=== PATIENT | male | born 1940 | race Caucasian/White ===

== ENCOUNTER 2024-03-31 10:28 | Emergency (ER) | payer MEDICARE, OTHER, SELFPAY ==
[2024-03-31 10:39] VITALS: BP 170/95
--- NOTE | 2024-03-31 10:46 | ED.GENMED ---
ED Provider Triage
<Yang Don PA-C - Last Filed: 04/01/24 08:12>
-
Patient seen by provider in Triage?: Seen in Triage
Attestation: A medical screening examination has been initiated by a qualified medical provider. Based on the assessment performed at this time, it has been determined that an emergent medical condition may exist and the patient has been informed
that further medical evaluation and possible additional diagnostic testing may be needed.
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 On arrival EMS took an EKG and noticed
frequent PVCs. Patient notes that he did eat prior to officiating the game and at time of triage notes he is completely asymptomatic. Labs ordered. EKG done in triage is noted for normal sinus rhythm with frequent PVCs as well.
GENERAL: Alert , in no apparent distress
EYE: No visual abnormalities.
NECK: Trachea midline
ENT: No visible abnormalities.
LUNGS: No acute respiratory distress
NEUROLOGICAL: Alert and oriented
SKIN: Skin intact. No visible changes.
MUSCULOSKELETAL: Moving extremities normally
PSYCH: Normal and appropriate interaction.
This is a medical evaluation conducted in person to initiate diagnostic evaluation and provide initial therapeutics. Please see further documentation by the treating clinician.
History of Present Illness
<Yang Don PA-C - Last Filed: 04/01/24 08:12>
General
Chief Complaint: Dizziness
Time Seen by Provider: 03/31/24 13:29
<ROSY Fernandez - Last Filed: 04/02/24 15:44>
General
Source: patient
Exam Limitations: none
Nursing documentation reviewed up to this point in time: agreed with
History of Present Illness
History of Present Illness:
Patient is an 9-year-old male who presents to the ER for lightheadedness. 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 He did have a bowl of cereal prior to his first game however during the second game he started
feel lightheaded dizzy/. He had no palpitations or chest pain no shortness of breath. He sat down and started to feel little better and he was recommended to come to the ER. He had no associated vertigo, balance issues. He denies any associate
headache. He admits to not drinking enough water throughout both games. He does have a history of PVCs however usually does not have any symptoms. He denies any recent illness fever chills. He is asymptomatic presently feels well enough to go
home.
Review of Systems
<ROSY Fernandez - Last Filed: 04/02/24 15:44>
Review of Systems
Allergies reviewed?: Yes
All Other Systems: ROS reviewed and negative except as documented in HPI and ROS
Constitutional: Reports no symptoms; Denies fever, fatigue or chills
Respiratory: Reports no symptoms; Denies trouble breathing
Cardiac: Reports other ([place] lightheaded prior to arrival)
ABD/GI: Reports no symptoms; Denies abdominal pain or vomiting
Musculoskeletal: Reports no symptoms
Skin: Reports no symptoms
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
Psychiatric: Reports no symptoms
Phy Exam
<ROSY Fernandez - Last Filed: 04/02/24 15:44>
General Physical Exam
General Presentation: no apparent distress
General age: appears stated age
General Skin: warm and dry
General Habitus: normal
General Mental: alert
General Hydration: appears well hydrated
Eye Exam
Eye Exam: PERRL and EOMI
Eye Exam General: PERRL: bilateral and EOM intact: bilateral
Pupil Exam: Bilateral: round and reactive
Cardiovascular Exam
Cardiovascular Exam: regular rate/rhythm, no murmur and normal peripheral pulses
Pulmonary Exam
Pulmonary Exam: lungs clear and no respiratory distress
Neurological Exam
Neurological Exam: alert and oriented x3
[place] Coma Scale
Eye Opening: Spontaneous
Verbal Response: Oriented
Motor Response: Obeys Commands
GCS Total Score: 15
Musculoskeletal Exam
Musculoskeletal Exam: full ROM
Skin Exam
Skin Exam: normal color and warm/dry
Psychiatric Exam
Psychiatric Exam: normal mood/affect
Course
<Yang Don PA-C - Last Filed: 04/01/24 08:12>
Orders/Labs/Results
Orders:
Orders
03/31/24 10:31
EKG [Electrocardiogram (*1)] Urgent
Reason for Study: Chest Pain
EKG- Treatment ONCE
03/31/24 10:51
Complete Blood Count/With Diff Urgent
Comprehensive Metabolic Panel Urgent
Troponin I Urgent
Abnormal Lab Results
03/31/24
10:51
MCHC 32.9 L g/dL
(33.0-37.0)
MPV 10.5 H fL
(7.4-10.4)
Absolute Neuts (auto) 6.6 H 10^3/uL
(1.4-6.5)
Absolute Lymphs (auto) 0.8 L 10^3/uL
(1.2-3.4)
Absolute Monos (auto) 0.8 H 10^3/uL
(0.1-0.6)
Neutrophils % 77.1 H %
(42.2-75.2)
Lymphocytes % 9.2 L %
(20.5-51.1)
Glucose 104 H mg/dl
(70-99)
03/31/24 10:51
03/31/24 10:51
Vital Signs
Initial and Last Documented VS:
Initial Vital Signs
Temp Pulse Resp BP Pulse Ox
98.9 F 86 22 170/95 97
03/31/24 10:39 03/31/24 10:39 03/31/24 10:39 03/31/24 10:39 03/31/24 10:39
Last Documented Vital Signs
Temp Pulse Resp BP Pulse Ox
98.9 F 71 18 137/70 98
03/31/24 10:39 03/31/24 13:09 03/31/24 13:09 03/31/24 13:09 03/31/24 13:09
<ROSY Fernandez - Last Filed: 04/02/24 15:44>
Orders/Labs/Results
Orders:
Orders
03/31/24 10:31
EKG [Electrocardiogram (*1)] Urgent
Reason for Study: Chest Pain
EKG- Treatment ONCE
03/31/24 10:51
Complete Blood Count/With Diff Urgent
Comprehensive Metabolic Panel Urgent
Troponin I Urgent
Abnormal Lab Results
03/31/24
10:51
MCHC 32.9 L g/dL
(33.0-37.0)
MPV 10.5 H fL
(7.4-10.4)
Absolute Neuts (auto) 6.6 H 10^3/uL
(1.4-6.5)
Absolute Lymphs (auto) 0.8 L 10^3/uL
(1.2-3.4)
Absolute Monos (auto) 0.8 H 10^3/uL
(0.1-0.6)
Neutrophils % 77.1 H %
(42.2-75.2)
Lymphocytes % 9.2 L %
(20.5-51.1)
Glucose 104 H mg/dl
(70-99)
03/31/24 10:51
03/31/24 10:51
Vital Signs
Initial and Last Documented VS:
Initial Vital Signs
Temp Pulse Resp BP Pulse Ox
98.9 F 86 22 170/95 97
03/31/24 10:39 03/31/24 10:39 03/31/24 10:39 03/31/24 10:39 03/31/24 10:39
Last Documented Vital Signs
Temp Pulse Resp BP Pulse Ox
98.9 F 71 18 137/70 98
03/31/24 10:39 03/31/24 13:09 03/31/24 13:09 03/31/24 13:09 03/31/24 13:09
Spice Grinder consulted with Physician
Spice Grinder consulted with physician?: Yes
Name of Physician Consulted: Dr Zhang
<ROSY Fernandez - Last Filed: 04/02/24 15:44>
MDM/Problems Addressed
Differential Diagnosis Includes:
Not limited to dehydration overexertion, arrhythmia
MDM/Problems Addressed:
As documented patient is an 9-year-old male who was referring to [employer] back to back and felt lightheaded during a second game. He admits to not drinking enough water. He had no associated chest pain headache balance issues shortness of
breath. He did not feel like he was going to pass out. He presented during my exam asymptomatic and felt much better. He does have a history PVCs and does have PVCs on the monitor. He denies any recent fever chills he is mildly hypertensive but
did not take his blood pressure medicine today. He is afebrile nonhypoxic nontachypneic with a normal white count stable hemoglobin of 14.1.chemistries chemistries and troponin are unremarkable. EKG does show sinus rhythm with frequent PVCs.
Though he is having PVCs now he is asymptomatic. There is likely this was from over exertion with refereeing 2 games [id number] and not enough water. I did review with patient however with his frequency of PVCs it is importantly follow-up with
his manager transplant for further reevaluation of a Holter monitor. He is mildly hypertensive but did not take his medicine today. Will have patient take his medicines at home. He did eat and drink here and remains well-appearing with no complaints of
symptoms throughout his ER stay. Case discussed with Dr. Rush.
Chronic conditions affecting care:
PVCs, hypertension
<ROSY Fernandez - Last Filed: 04/02/24 15:44>
*Critical Care Note
Total Time (30-74mins, 75-104mins- exclusive of procedures): Not Applicable
ED Attending Note
<Yang Don PA-C - Last Filed: 04/01/24 08:12>
-
Portions of this chart may have been created with voice recognition software.� Occasional wrong word or��sound alike� substitutions may have occurred due to the inherent limitations of voice recognition software.
Discharge Plan
Departure
Patient Disposition: Home (Routine Discharge)
Date of Disposition: 03/31/24
Time of Disposition: 15:10
Patient with high blood pressure during this ER visit?: Yes
Condition: Fair
Covid-19: Not Applicable
Discharge Problem:
Lightheadedness, PVC (premature ventricular contraction)
Instructions: Ventricular premature beats, Dizziness in adults - ED discharge instructions, BLOOD PRESSURE
Referrals:
Darnell Medellin MD [Active] -
Darien Morin DO [Family Provider] -
Activity Restrictions/Additional Instructions:
As discussed you had PVCs on your EKG and rfid strategist here in the ER.
In addition symptoms are likely from not drinking enough water while being very active.
Stay well-hydrated and rest today. Please call cardiology Tuesday to make an appointment as soon as possible for reevaluation. Return if any worsening of symptoms
Interventions
Interventions:
*Risk Screen - Suicide Last Done: 03/31/24 10:44
*Neglect/Abuse Screening Last Done: 03/31/24 10:44
*Nursing Disposition Last Done: 03/31/24 15:22
ED- Neurological Assessment Last Done: 03/31/24 13:38
ED- Cardiac Assessment Last Done: 03/31/24 13:38
Discharge Date and Time
Discharge Date/Time: 03/31/24 15:38
Print Language: WOLOF
[2024-03-31 11:19] LABS: % Basophils 0.6 % (0-2); % Eosinophils 3.3 % (0-6); % Immature Granulocytes 0.5 % (0-0.5); % Lymphocytes 9.2 % (20.5-51.1); % Monocytes 9.3 % (1.7-9.3); % Neutrophils 77.1 % (42.2-75.2); Absolute Basophils 0.1 10^3/uL (0-0.2); Absolute Eosinophils 0.3 10^3/uL (0-0.7); Absolute Lymphocytes 0.8 10^3/uL (1.2-3.4); Absolute Monocytes 0.8 10^3/uL (0.1-0.6); Absolute Neutrophils 6.6 10^3/uL (1.4-6.5); Hematocrit 42.9 % (39.0-52.0); Hemoglobin 14.1 g/dL (13.0-18.0); Mean Corp Hgb Conc. 32.9 g/dL (33.0-37.0); Mean Corpuscular Hgb 29.3 pg (27.0-31.0); Mean Corpuscular Volume 89.2 fL (80.0-94.0); Mean Platelet Volume 10.5 fL (7.4-10.4); Nucleated Red Blood Cells % 0 % (-); Platelet Count 208 10^3/uL (130-400); Red Blood Cell Count 4.81 10^6/uL (4.70-6.10); Red Cell Dist. Width 14.3 % (11.5-14.5); White Blood Cell Count 8.6 10^3/uL (4.8-10.8)
[2024-03-31 11:31] LABS: ALT (SGPT) 18 U/L (0-50); AST (SGOT) 22 U/L (17-59); Alkaline Phosphatase 74 U/L (38-126); Blood Urea Nitrogen 18 mg/dl (9-20); Calcium 9.1 mg/dl (8.4-10.2); Carbon Dioxide 30 mmol/L (22-30); Chloride 98 mmol/L (98-107); Glucose 104 mg/dl (70-99); Potassium 4.3 mmol/L (3.5-5.1); Sodium 135 mmol/L (135-145); Total Bilirubin 0.5 mg/dl (0.2-1.3); Total Protein 6.6 g/dl (6.3-8.2); eGFR > 60.00
[2024-03-31 11:40] LABS: Troponin I < 0.012 ng/ml
[2024-03-31 13:09] VITALS: BP 137/70
--- NOTE | 2024-03-31 14:07 | ED.GENMED ---
History of Present Illness
General
Chief Complaint: Dizziness
Source: patient
Exam Limitations: none
Time Seen by Provider: 03/31/24 13:29
Nursing documentation reviewed up to this point in time: agreed with
History of Present Illness
History of Present Illness:
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 Patient reports he did get up this morning had breakfast however he was refereeing his second basketball game around 930 when he felt lightheaded. He felt dizzy and lightheaded but denies
vertigo. He sat down which improved his symptoms. He reports there were nurses on scene which called EMS who brought him here to the ER. He now is asymptomatic.
He admits to not drinking enough water. He had no associated chest pain or shortness of breath and is a symptomatic now. He does have a history of PVCs in the past.
Review of Systems
Review of Systems
Allergies reviewed?: Yes
Other source history: family
All Other Systems: ROS reviewed and negative except as documented in HPI and ROS
Constitutional: Reports no symptoms; Denies fever, fatigue or chills
Respiratory: Reports no symptoms
Cardiac: Reports no symptoms
ABD/GI: Reports no symptoms
Musculoskeletal: Reports no symptoms
Skin: Reports no symptoms
Neurological: Reports other (Patient felt lightheaded now resolved); Denies dizzy or headache
Psychiatric: Reports no symptoms
Phy Exam
General Physical Exam
General Presentation: no apparent distress
General age: appears stated age
General Skin: warm and dry
General Habitus: normal
General Mental: alert
General Hydration: appears well hydrated
Cardiovascular Exam
Cardiovascular Exam: regular rate/rhythm, no murmur and normal peripheral pulses
Pulmonary Exam
Pulmonary Exam: lungs clear and no respiratory distress
Neurological Exam
Neurological Exam: alert and oriented x3
Musculoskeletal Exam
Musculoskeletal Exam: full ROM
Skin Exam
Skin Exam: normal color and warm/dry
Psychiatric Exam
Psychiatric Exam: normal mood/affect
Course
Orders/Labs/Results
Orders:
Orders
03/31/24 10:31
EKG [Electrocardiogram (*1)] Urgent
Reason for Study: Chest Pain
EKG- Treatment ONCE
03/31/24 10:51
Complete Blood Count/With Diff Urgent
Comprehensive Metabolic Panel Urgent
Troponin I Urgent
Abnormal Lab Results
03/31/24
10:51
MCHC 32.9 L g/dL
(33.0-37.0)
MPV 10.5 H fL
(7.4-10.4)
Absolute Neuts (auto) 6.6 H 10^3/uL
(1.4-6.5)
Absolute Lymphs (auto) 0.8 L 10^3/uL
(1.2-3.4)
Absolute Monos (auto) 0.8 H 10^3/uL
(0.1-0.6)
Neutrophils % 77.1 H %
(42.2-75.2)
Lymphocytes % 9.2 L %
(20.5-51.1)
Glucose 104 H mg/dl
(70-99)
03/31/24 10:51
03/31/24 10:51
Vital Signs
Initial and Last Documented VS:
Initial Vital Signs
Temp Pulse Resp BP Pulse Ox
98.9 F 86 22 170/95 97
03/31/24 10:39 03/31/24 10:39 03/31/24 10:39 03/31/24 10:39 03/31/24 10:39
Last Documented Vital Signs
Temp Pulse Resp BP Pulse Ox
98.9 F 71 18 137/70 98
03/31/24 10:39 03/31/24 13:09 03/31/24 13:09 03/31/24 13:09 03/31/24 13:09
Outlet Manager consulted with Physician
Outlet Manager consulted with physician?: Yes
Name of Physician Consulted: Victor Manuel
MDM/Problems Addressed
Differential Diagnosis Includes:
not limited to: dehydration, PVCs
MDM/Problems Addressed:
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 He admits to not drinking enough water while playing. He had no chest pain or shortness of breath. He did eat breakfast this morning.
He does have a history of PVCs.
Patient presents awake alert no acute distress and has been asymptomatic here in the ER.
He does have PVCs on the monitor however he does have history of this. He had a normal echo March 2023 from [facility]. It is possible this is likely from not drinking enough water and being very active refereeing to basketball
games it is possible that this is symptomatic PVCs however stable for discharge home with close outpatient follow-up child and adolescent psychiatrist.
Chronic conditions affecting care:
history of pvcs in the past
*Pulse Oximetry
Patient hypoxic: no
*EKG
Interpreted by ED Provider?: Yes
Interpretation: normal
Heart Rate: 82
Rate: normal
Rhythm: sinus
Ischemia: non-specific ST changes
*Critical Care Note
Total Time (30-74mins, 75-104mins- exclusive of procedures): Not Applicable
Data Reviewed
Review of Other/Old Records Reveals: Other (Echo from March 25 shows normal LV ventricular size ejection fracture 60-65%)
ED Attending Note
-
Portions of this chart may have been created with voice recognition software.� Occasional wrong word or��sound alike� substitutions may have occurred due to the inherent limitations of voice recognition software.
Discharge Plan
Departure
Patient Disposition: Home (Routine Discharge)
Date of Disposition: 03/31/24
Time of Disposition: 15:10
Patient with high blood pressure during this ER visit?: Yes
Condition: Fair
Covid-19: Not Applicable
Discharge Problem:
Lightheadedness, PVC (premature ventricular contraction)
Instructions: Ventricular premature beats, Dizziness in adults - ED discharge instructions, BLOOD PRESSURE
Referrals:
Darnell Medellin MD [Active] -
Darien Morin DO [Family Provider] -
Activity Restrictions/Additional Instructions:
As discussed you had PVCs on your EKG and environmental health and safety manager here in the ER.
In addition symptoms are likely from not drinking enough water while being very active.
Stay well-hydrated and rest today. Please call cardiology Tuesday to make an appointment as soon as possible for reevaluation. Return if any worsening of symptoms
Interventions
Interventions:
*Risk Screen - Suicide Last Done: 03/31/24 10:44
*Neglect/Abuse Screening Last Done: 03/31/24 10:44
*Nursing Disposition Last Done: 03/31/24 15:22
ED- Neurological Assessment Last Done: 03/31/24 13:38
ED- Cardiac Assessment Last Done: 03/31/24 13:38
Discharge Date and Time
Print Language: SYRIAC
== END 2024-03-31 15:38 | disposition home or self-care (01) ==
LOC: EMR 10:28
PROVIDERS: Physician Assistant Medical; EMERGENCY PHYSICIAN Emergency Medicine; FAMILY PHYSICIAN Family Medicine
DX: R42 Dizziness and giddiness (principal); I49.3 Ventricular premature depolarization; I10 Essential (primary) hypertension; E78.00 Pure hypercholesterolemia, unspecified
CPT/HCPCS: 99283; 80053; 84484; 85025; 93005

== ENCOUNTER → 2024-05-18 10:00 | Outpatient (REF) | payer MEDICARE, OTHER, SELFPAY | LOC: HWRAD 10:00 | PROVIDERS: ATTENDING PHYSICIAN Family Medicine | DX: R09.89 Other specified symptoms and signs involving the circulatory and respiratory systems (principal) | CPT/HCPCS: 93880 ==

== ENCOUNTER → 2024-05-28 10:20 | Outpatient (REF) | payer MEDICARE, OTHER, SELFPAY | LOC: RCS 10:20 | PROVIDERS: ATTENDING PHYSICIAN Internal Medicine Cardiovascular Disease; FAMILY PHYSICIAN Family Medicine | DX: I49.3 Ventricular premature depolarization (principal) | CPT/HCPCS: 93225; 93226 ==

== ENCOUNTER → 2024-06-01 11:04 | Outpatient (REF) | payer MEDICARE, OTHER, SELFPAY | LOC: HWRCS 11:04 | PROVIDERS: ATTENDING PHYSICIAN Internal Medicine Cardiovascular Disease; FAMILY PHYSICIAN Family Medicine | DX: I49.3 Ventricular premature depolarization (principal) | CPT/HCPCS: 93306 ==

== ENCOUNTER → 2024-08-03 08:05 | Outpatient (REF) | payer MEDICARE, OTHER, SELFPAY | LOC: HWRCS 08:05 | PROVIDERS: ATTENDING PHYSICIAN Internal Medicine Cardiovascular Disease; FAMILY PHYSICIAN Family Medicine | DX: I49.3 Ventricular premature depolarization (principal); R94.31 Abnormal electrocardiogram [ECG] [EKG] | CPT/HCPCS: 78452; 93017; A9500; J2785 ==

== ENCOUNTER → 2024-10-22 09:23 | Outpatient (REF) | payer MEDICARE, OTHER, SELFPAY | LOC: RCS 09:23 | PROVIDERS: ATTENDING PHYSICIAN Internal Medicine Cardiovascular Disease; FAMILY PHYSICIAN Family Medicine | DX: I49.3 Ventricular premature depolarization (principal) | CPT/HCPCS: 93225; 93226 ==